=== PATIENT | female | born 1985 | race Caucasian/White ===

== ENCOUNTER 2016-12-22 14:16 | Emergency (ER) | payer SELFPAY ==
[2016-12-22 14:29] VITALS: BP 127/70
[2016-12-22] MEDS ORDERED: Sodium Chloride 0.9% 10 ML Syringe FLUSH PRN (14:37)
[2016-12-22] MEDS ORDERED: HYDROmorphone 0.5 MG/0.5 ML Syringe IVPUSH ONE ×2 (14:40→17:11)
[2016-12-22] MEDS ORDERED: Ondansetron 4 MG/2 ML SDV IVPUSH ONE (14:40)
--- NOTE | 2016-12-22 14:42 | EDM.PDOC ---
ED HPI GI/ABDOMINAL - General Chief Complaint: Flank Pain Stated Complaint: ABDOMINAL PAIN Time Seen by Provider: 12/22/16 14:31 Source of Information: Reports: Patient History Limitations: Reports: No limitations - History of Present Illness INITIAL COMMENTS - FREE TEXT/NARRATIVE: Patient is a 31-year-old female who presents to the ED complaining of right flank pain. She states pain came on abruptly at approximately 11:30 this morning. Pain is to the right flank consistent to previous kidney stones. Pain is currently a 10/10 and cannot get comfortable. States she is mildly nauseated and has taken ibuprofen with minimal relief. States she has a history kidney stones in the past requiring lithotripsy. In addition approximately 2 years ago she required hospitalization for him on secondary to pyelonephritis. Patient required placement of drain and also a stent at that time. States the bacteria that was involved was highly resistant to multiple antibiotics. In addition approximately 8 years ago patient had an to requiring surgical removal or of her right fallopian tube. Patient states she recently just moved to [place] recently. She is sexually active and has protected sex. Denies being . She denies taking any prescription medications. Denies any any additional medical history. Surgical history includes and tubal . history: 4, para 3, miscarriage one, zero. Patient consumes alcohol and utilizes marijuana on a occasional basis. She does smoke a half pack per day. Timing/Duration: Reports: Constant, Getting worse Location: flank (Right) Quality: Reports: ache, throbbing Severity: severe Worsens with: Reports: palpation Context: Reports: other (None stated ) Associated Symptoms (-Female): Reports: back pain (Right flank), malaise, nausea/vomiting (Mild nausea). 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 - Related Data Allergies/ADRs: Allergies Allergy/AdvReac Type Severity Reaction Status Date / Time Sulfa (Sulfonamide Allergy Rash Verified 12/22/16 14:29 Antibiotics) Home Meds: Home Meds Acetaminophen/HYDROcodone [[place] 325-5 MG] 1 tab PO Q6H PRN #15 tablet 12/22/16 [Rx] Levofloxacin [Levaquin] 500 mg PO Q24H #10 tablet 12/22/16 [Rx] Ondansetron [Zofran ODT] 4 mg PO Q6H PRN #15 tab.dis 12/22/16 [Rx] Past Medical History Genitourinary History: Reports: Pyelonephritis, Urostomy, Other (see below) Other Genitourinary History: stent Social & Family History - Family History Family Medical History: Noncontributory ED ROS GENERAL - Review of Systems Review Of Systems: See Below Constitutional: Denies: fever, chills, decreased appetite Respiratory: Denies: Shortness of Breath, Cough, Sputum Cardiovascular: Denies: Chest pain, Dyspnea on exertion, Palpitations GI/Abdominal: Reports: Abdominal pain (Right flank pain), Nausea. Denies: Black stool, Bloody stool, Constipation, Diarrhea, Decreased appetite, Hematemesis, Melena, Vomiting : Reports: flank pain (Right). Denies: dysuria, frequency Musculoskeletal: Reports: back pain Neurological: Denies: Dizziness ED EXAM, GI/ABD - Physical Exam Exam: See Below Exam Limited By: No limitations General Appearance: alert, WD/WN, moderate distress Eyes: bilateral: normal appearance Ears: hearing grossly normal Nose: normal inspection Throat/Mouth: Normal voice, No airway compromise Neck: normal inspection, supple Respiratory/Chest: no respiratory distress, lungs clear, normal breath sounds, no accessory muscle use Cardiovascular: normal peripheral pulses, regular rate, rhythm GI/Abdominal: normal bowel sounds, soft, non tender, no organomegaly, no distention, tenderness (Right flank). No: McBurney's sign, Eli's sign (Female) Exam: Deferred Rectal (Female) Exam: Deferred Back Exam: normal inspection. No: CVA tenderness (L), CVA tenderness (R) Extremities: normal inspection, non-tender, no pedal edema Neurological: alert, oriented, CN II-XII intact, normal cognition Psychiatric: normal affect, normal mood Skin Exam: Warm, Dry, Intact, Normal color, No rash Course - Vital Signs Last Recorded V/S: Last Vital Signs Temp 99.5 F 12/22/16 14:27 Pulse 99 12/22/16 14:27 Resp 16 12/22/16 14:27 BP 127/70 12/22/16 14:27 Pulse Ox 100 12/22/16 14:27 - Orders/Labs/Meds Orders: Active Orders 24 hr Category Date Time Status Peripheral IV Care [RC] . DIRECTED Care 12/22/16 14:37 Active CULTURE URINE [RM] Stat Lab 12/22/16 14:56 Received GC/CHLAMYDIA BY PCR [MOLEC] Stat Lab 12/22/16 18:05 Received Sodium Chloride 0.9% [Normal Saline] 1,000 ml Med 12/22/16 14:45 Active IV ASDIRECTED Sodium Chloride 0.9% [Saline Flush] Med 12/22/16 14:37 Active 10 ml FLUSH ASDIRECTED PRN Peripheral IV Insertion Adult [OM.PC] Stat Oth 12/22/16 14:37 Ordered Medication Orders Sodium Chloride (Normal Saline) 1,000 mls @ 75 mls/hr IV ASDIRECTED ROBBIE Last Admin: 12/22/16 14:55 Dose: 75 mls/hr Sodium Chloride (Saline Flush) 10 ml FLUSH ASDIRECTED PRN PRN Reason: Keep Vein Open Last Admin: 12/22/16 14:55 Dose: 10 ml Labs: Laboratory Tests 12/22/16 12/22/16 12/22/16 Range/Units 14:50 14:50 15:03 WBC 14.38 H (3.98-10.04) K/mm3 RBC 5.02 (3.98-5.22) M/mm3 Hgb 14.7 (11.2-15.7) gm/L Hct 44.9 (34.1-44.9) % MCV 89.4 (79.4-94.8) fl MCH 29.3 (25.6-32.2) pg MCHC 32.7 (32.2-35.5) g/dl RDW Std Deviation 47.5 H (36.4-46.3) fL Plt Count 297 (182-369) K/mm3 MPV 10.4 (9.4-12.3) fl Neut % (Auto) 65.7 (34.0-71.1) % Lymph % (Auto) 24.5 (19.3-51.7) % [place] % (Auto) 8.6 (4.7-12.5) % Eos % (Auto) 0.8 (0.7-5.8) Baso % (Auto) 0.2 (0.1-1.2) % Neut # (Auto) 9.45 H (1.56-6.13) K/mm3 Lymph # (Auto) 3.52 (1.18-3.74) K/mm3 [place] # (Auto) 1.23 H (0.24-0.36) K/mm3 Eos # (Auto) 0.12 (0.04-0.36) K/mm3 Baso # (Auto) 0.03 (0.01-0.08) K/mm3 Sodium (136-145) mEq/L Potassium (3.5-5.1) mEq/L Chloride (98-107) mEq/L Carbon Dioxide (21-32) mEq/L Anion Gap (5-15) BUN (7-18) mg/dL Creatinine (0.55-1.02) mg/dL Est Cr Clr Drug Dosing mL/min Estimated GFR (MDRD) (>60) mL/min BUN/Creatinine Ratio (14-18) Glucose (74-106) mg/dL Calcium (8.5-10.1) mg/dL Total Bilirubin (0.2-1.0) mg/dL AST (15-37) U/L ALT (14-59) U/L Alkaline Phosphatase (46-116) U/L C-Reactive Protein (<1.0) mg/dL Total Protein (6.4-8.2) g/dl Albumin (3.4-5.0) g/dl Globulin gm/dL Albumin/Globulin Ratio (1-2) HCG, Qual (NEGATIVE) Urine Color Yellow (Yellow) Urine Appearance Slt cloudy H (Clear) Urine pH 8.0 (5.0-8.0) Ur Specific [place] 1.025 (1.005-1.030) Urine Protein 3+ H (Negative) Urine Glucose (UA) Negative (Negative) Urine Ketones Negative (Negative) Urine Occult Blood 3+ H (Negative) Urine Nitrite Negative (Negative) Urine Bilirubin Negative (Negative) Urine Urobilinogen 0.2 (0.2-1.0) Ur Leukocyte Esterase 1+ H (Negative) Urine RBC 10-20 H (0-5) /hpf Urine WBC 10-20 H (0-5) /hpf Ur Epithelial Cells 0-5 (0-5) /hpf Urine Bacteria Moderate H (FEW) /hpf Urine Mucus Not seen (FEW) /hpf Urine Opiates Screen Negative (NEGATIVE) Ur Buprenorphine Scrn Presumptive positive H (NEGATIVE) Ur Oxycodone Screen Negative (NEGATIVE) Urine Methadone Screen Negative (NEGATIVE) Ur Propoxyphene Screen Negative (NEGATIVE) Ur Barbiturates Screen Negative (NEGATIVE) Ur Tricyclics Screen Negative (NEGATIVE) Ur Phencyclidine Scrn Negative (NEGATIVE) Ur Amphetamine Screen Negative (NEGATIVE) U Methamphetamines Scrn Negative (NEGATIVE) U Benzodiazepines Scrn Negative (NEGATIVE) U Cocaine Metab Screen Negative (NEGATIVE) U Marijuana (THC) Screen Presumptive positive H (NEGATIVE) Ethyl Alcohol (0.00) gm% 12/22/16 12/22/16 Range/Units 15:03 15:03 WBC (3.98-10.04) K/mm3 RBC (3.98-5.22) M/mm3 Hgb (11.2-15.7) gm/L Hct (34.1-44.9) % MCV (79.4-94.8) fl MCH (25.6-32.2) pg MCHC (32.2-35.5) g/dl RDW Std Deviation (36.4-46.3) fL Plt Count (182-369) K/mm3 MPV (9.4-12.3) fl Neut % (Auto) (34.0-71.1) % Lymph % (Auto) (19.3-51.7) % [place] % (Auto) (4.7-12.5) % Eos % (Auto) (0.7-5.8) Baso % (Auto) (0.1-1.2) % Neut # (Auto) (1.56-6.13) K/mm3 Lymph # (Auto) (1.18-3.74) K/mm3 [place] # (Auto) (0.24-0.36) K/mm3 Eos # (Auto) (0.04-0.36) K/mm3 Baso # (Auto) (0.01-0.08) K/mm3 Sodium 140 (136-145) mEq/L Potassium 4.0 (3.5-5.1) mEq/L Chloride 103 (98-107) mEq/L Carbon Dioxide 27 (21-32) mEq/L Anion Gap 14.0 (5-15) BUN 15 (7-18) mg/dL Creatinine 0.7 (0.55-1.02) mg/dL Est Cr Clr Drug Dosing 98.09 mL/min Estimated GFR (MDRD) > 60 (>60) mL/min BUN/Creatinine Ratio 21.4 H (14-18) Glucose 85 (74-106) mg/dL Calcium 8.7 (8.5-10.1) mg/dL Total Bilirubin 0.5 (0.2-1.0) mg/dL AST 27 (15-37) U/L ALT 32 (14-59) U/L Alkaline Phosphatase 89 (46-116) U/L C-Reactive Protein 2.7 H* (<1.0) mg/dL Total Protein 7.1 (6.4-8.2) g/dl Albumin 3.5 (3.4-5.0) g/dl Globulin 3.6 gm/dL Albumin/Globulin Ratio 1.0 (1-2) HCG, Qual Negative (NEGATIVE) Urine Color (Yellow) Urine Appearance (Clear) Urine pH (5.0-8.0) Ur Specific [place] (1.005-1.030) Urine Protein (Negative) Urine Glucose (UA) (Negative) Urine Ketones (Negative) Urine Occult Blood (Negative) Urine Nitrite (Negative) Urine Bilirubin (Negative) Urine Urobilinogen (0.2-1.0) Ur Leukocyte Esterase (Negative) Urine RBC (0-5) /hpf Urine WBC (0-5) /hpf Ur Epithelial Cells (0-5) /hpf Urine Bacteria (FEW) /hpf Urine Mucus (FEW) /hpf Urine Opiates Screen (NEGATIVE) Ur Buprenorphine Scrn (NEGATIVE) Ur Oxycodone Screen (NEGATIVE) Urine Methadone Screen (NEGATIVE) Ur Propoxyphene Screen (NEGATIVE) Ur Barbiturates Screen (NEGATIVE) Ur Tricyclics Screen (NEGATIVE) Ur Phencyclidine Scrn (NEGATIVE) Ur Amphetamine Screen (NEGATIVE) U Methamphetamines Scrn (NEGATIVE) U Benzodiazepines Scrn (NEGATIVE) U Cocaine Metab Screen (NEGATIVE) U Marijuana (THC) Screen (NEGATIVE) Ethyl Alcohol 0.00 (0.00) gm% Meds: Medications Generic Name Dose Route Start Last Admin Trade Name Freq PRN Reason Stop Dose Admin Sodium Chloride 1,000 mls @ 75 mls/hr 12/22/16 14:45 12/22/16 14:55 Normal Saline IV 75 mls/hr ASDIRECTED ROBBIE Administration Sodium Chloride 10 ml 12/22/16 14:37 12/22/16 14:55 Saline Flush FLUSH 10 ml ASDIRECTED PRN Administration Keep Vein Open Discontinued Medications Generic Name Dose Route Start Last Admin Trade Name Denisa PRN Reason Stop Dose Admin Hydromorphone HCl 0.5 mg 12/22/16 14:40 12/22/16 14:50 Dilaudid IVPUSH 12/22/16 14:41 0.5 mg ONETIME ONE Administration Hydromorphone HCl 0.5 mg 12/22/16 17:11 12/22/16 17:19 Dilaudid IVPUSH 12/22/16 17:12 0.5 mg ONETIME ONE Administration Levofloxacin/Dextrose 750 mg/ 150 mls @ 100 mls/hr 12/22/16 16:44 12/22/16 17 :09 Premix IV 12/22/16 18:13 100 mls/hr ONETIME ONE Administration Ibuprofen 600 mg 12/22/16 18:23 12/22/16 18:27 Motrin PO 12/22/16 18:24 600 mg ONETIME ONE Administration Ondansetron HCl 4 mg 12/22/16 14:40 12/22/16 14:51 Zofran IVPUSH 12/22/16 14:41 4 mg ONETIME ONE Administration - Re-Assessments/Exams Free Text/Narrative Re-Assessment/Exam: Ordered peripheral IV with NS 75 mls/hr, zofran 4mg IVP, and dilaudid 0.5mg IVP. Initial labs and studies include: CBC, C14, CRP,UA, HCG, Serum ETOH, Urine and urine Drug tox. 12/22/16 15:[address] abdomen without contrast renal stone protocol. Labs reviewed:White blood cell count 14.38, hemoglobin 14.7, platelet count 297 , neutrophil #9.45, sodium 140, potassium 4.0, creatinine 0.7, CRP 2.7, hCG negative. UA revealed: Slightly cloudy with 3+ protein, 3+ occult blood, leukocyte esterase 1+, urine rbc's 10-20, urine rbc's 10-20, moderate bacteria. Urine drug tox positive for buprenorphine and marijuana. 12/22/16 16:45 Ordered GC Chlamydia by PCR. Ordered Levaquin [address] of the abdomen and pelvis with Dr. Hall radiologist. Impression : Mildly dilated right ureter with inflammatory changes seen around the right kidney as well as a right kidney appearing slightly swollen. This ureter is dilated down to what appears to be a surgical clips or surgical anastomotic sutures within the right pelvis. Difficult to exclude obstruction of the ureter by his clips. As mention above, ureteral obstruction could also be due to scar tissue. Please correlate with the patient's surgical history. Urological referral could be obtained first great study. No additional abnormalities seen on noncontrast CT study of the abdomen and pelvis. 12/22/16 16:[address] Mann credit operations specialist urologist and Dr. Lopez credit operations specialist [facility]. Dr. Mann does not believe patient requires urological workup at this time with only mildly dilated ureter present. Suggested treating the pyelonephritis as outpatient. Followup with him or one of his partners in 2-3 weeks for further evaluation. If the patient becomes septic has worsening symptoms this can be expedited, but at this point he does not see the need. 12/22/16 18:24 Patient requesting ibuprofen. Ibuprofen 600mg PO ordered. IV antibiotics are in. Patient is ready to be discharged home. Departure - Departure Time of Disposition: 18:54 Disposition: Home, Self-Care 01 Condition: good Clinical Impression: Pyelonephritis Prescriptions: Acetaminophen/HYDROcodone [[place] 325-5 MG] 1 tab PO Q6H PRN #15 tablet PRN Reason: Pain (Severe 7-10) Levofloxacin [Levaquin] 500 mg PO Q24H #10 tablet Ondansetron [Zofran ODT] 4 mg PO Q6H PRN #15 tab.dis PRN Reason: Nausea Instructions: Pyelonephritis, Adult, [id number], Pain Medicine Instructions, [id number], Flank Pain, [id number] Referrals: Mag Jones [Physician] - Forms: ED Department Discharge, Return to Work/School Form Additional Instructions: As discussed you have pyelonephritis. Treatment is oral antibiotic levaquin for 10 days. Zofran 4mg ODT for nausea PRN. Push the fluids. Ensure adequate rest. For pain take tylenol 650mg every 6 hours and ibuprofen 600mg every 6 hours as needed in alternating fashion. For SEVERE pain take norco 1 tab every [address] Follow up with Dr. Castaneda PCP at [facility] this coming Wednesday for reevaluation and to ensure antibiotic currently on will treat the infection. Call tomorrow morning to schedule an appointment. Urologists at [facility] recommends followup with him or one of his partners in 2 to 3 weeks for further testing. Call his clinic to schedule an appointment. Return to the E.D. if you cannot keep medications down , increased pain, or fever. - My Orders Last 24 Hours: My Active Orders 12/22/16 14:37 Peripheral IV Care [RC] . DIRECTED Sodium Chloride 0.9% [Saline Flush] 10 ml FLUSH ASDIRECTED PRN Peripheral IV Insertion Adult [OM.PC] Stat 12/22/16 14:45 Sodium Chloride 0.9% [Normal Saline] 1,000 ml IV ASDIRECTED 12/22/16 14:56 CULTURE URINE [RM] Stat 12/22/16 18:05 GC/CHLAMYDIA BY PCR [MOLEC] Stat - Assessment/Plan Last 24 Hours: My Active Orders 12/22/16 14:37 Peripheral IV Care [RC] . DIRECTED Sodium Chloride 0.9% [Saline Flush] 10 ml FLUSH ASDIRECTED PRN Peripheral IV Insertion Adult [OM.PC] Stat 12/22/16 14:45 Sodium Chloride 0.9% [Normal Saline] 1,000 ml IV ASDIRECTED 12/22/16 14:56 CULTURE URINE [RM] Stat 12/22/16 18:05 GC/CHLAMYDIA BY PCR [MOLEC] Stat
[2016-12-22] MEDS ORDERED: Sodium Chloride 0.9% 1,000 ML IV SCH (14:45)
--- NOTE | 2016-12-22 16:42 | CT ---
CT abdomen and pelvis Technique: Multiple axial sections were obtained from above the dome of the diaphragm inferiorly through the pubic symphysis. Intravenous and oral contrast not utilized. Study performed as a ureteral stone protocol. Comparison: No previous study. Findings: Mildly dilated right ureter is seen. Slight inflammatory change around the right kidney is seen. Right kidney is also somewhat swollen. Dilator right ureter occurs down to an area that appears to contain surgical clips or surgical anastomotic sutures. No ureteral calculi are seen. Difficult to exclude surgical change as not causing the ureteral obstruction. Findings could also be due to obstruction from scar tissue. Please correlate as to surgical history. Left kidney is unremarkable. Left ureter is unremarkable. Visualized lung bases are clear. Liver shows no focal abnormality. Spleen appears within normal limits. Adrenal glands show no nodule. Pancreas has an unremarkable noncontrast appearance. Aorta shows no aneurysmal dilatation. No retroperitoneal adenopathy or mesenteric abnormalities are seen. Minimal free fluid within the pelvis is seen which is felt to be physiologic. No bowel dilatation is seen. Appendix is seen which appears normal. Bone window settings were reviewed which appear within normal limits for the patient's age. Impression: 1. Mildly dilated right ureter with inflammatory change is seen around the right kidney as well as right kidney appearing slightly swollen. This ureter is dilated down to what appears to be surgical clips or surgical anastomotic sutures within the right pelvis. Difficult to exclude obstruction of the ureter by these clips. As mentioned above, ureteral obstruction could also be due to scar tissue. Please correlate with patient's surgical history. Urologic referral could be obtained for retrograde study. 2. No additional abnormality is seen on noncontrast CT study of the abdomen and pelvis. Diagnostic code #5
[2016-12-22] MEDS ORDERED: Levofloxacin/Dextrose 5%-Water 750 MG in Premix Bag 1 BAG IV ONE (16:44)
[2016-12-22] MEDS ORDERED: Ibuprofen 600 MG Tab PO ONE (18:23)
[2016-12-22 19:53] LABS: C. TRACHOMATIS BY PCR NOT DETECTED; N. GONORRHOEAE BY PCR NOT DETECTED
== END 2016-12-22 18:54 | disposition home or self-care (01) ==
LOC: JD.ED 14:16
DX: N12 Tubulo-interstitial nephritis, not specified as acute or chronic (principal); N28.82 Megaloureter; Z88.2 Allergy status to sulfonamides; Z87.442 Personal history of urinary calculi
CPT/HCPCS: 36415; 74176; 80053; 80306; 81001; 84703; 85025; 86140; 87086; 87491; 87591; 96361; 96365; 96366; 96375; 96376; 99284; A9270; G0480; J1170; J1956; J2405; J7040; J7050; 87088; 87186